=== PATIENT | female | born 1995 | race Hispanic/Latino ===

== ENCOUNTER 2018-02-14 13:20 | Emergency (ER) | payer MEDICAID, OTHER ==
[2018-02-14] MEDS ORDERED: FLUCONAZOLE 100 MG TAB ONE (14:21)
== END 2018-02-14 14:30 | disposition home or self-care (01) ==
LOC: EDH 13:20
DX: L01.00 Impetigo, unspecified (principal); Z72.0 Tobacco use
CPT/HCPCS: 81025